=== PATIENT | male | born 1960 | race Caucasian/White ===

== ENCOUNTER → 2018-06-22 | Outpatient (CLI) | payer MEDICARE, OTHER ==
--- NOTE | 2018-06-22 14:13 | Diagnostic Imaging Report ---
INDICATION: History of smoking. COMPARISON: 06/30/2008 TECHNIQUE: Routine noncontrast low-dose CT of the chest was performed for screening purposes. FINDINGS: Evaluation of the lung astorga demonstrates punctate 3 mm micronodule associated with the left major fissure (image 161, series 2). This is stable compared to 06/30/2008. Small groundglass micronodular density is also seen within the lateral margins of the right upper lobe and measures 3 mm (image 108, series 2). This area however is stable as well. There is a 4-5 mm micronodular density within the base of the right upper lobe (image 169, series 2). Corresponding density cannot be adequately identified on prior exam. Note is made however of a significant difference in slice thickness between the two studies. There is no focal consolidation, large effusion, nor pneumothorax. Cardiomediastinal structures show normal heart size. There is moderate calcified coronary atherosclerosis. Small pericardial effusion is noted and is likely within physiologic limits. No pathologically enlarged or morphologically abnormal adenopathy is seen within the mediastinum, nir, nor axilla. Bony structures show no acute abnormalities. No lytic or blastic osseous lesions are seen. Included portions of the upper abdomen are unremarkable. IMPRESSION: 1. Small bilateral pulmonary micronodules are present. There may be single new micronodule within the base of the right upper lobe. Conceivably, this may have been obscured on prior imaging secondary to volume averaging. Continued followup with annual low dose CT chest is recommended. 2. Moderate calcified coronary atherosclerosis. LungRads: Category 2-S Dictated by: Dictated on workstation # [id number]
== END ==
LOC: RAD 12:03
PROVIDERS: ATTEND Registered Nurse
DX: Z12.2 Encounter for screening for malignant neoplasm of respiratory organs (principal); R91.8 Other nonspecific abnormal finding of lung field; I25.10 Atherosclerotic heart disease of native coronary artery without angina pectoris; F17.210 Nicotine dependence, cigarettes, uncomplicated

== ENCOUNTER → 2018-10-26 | Outpatient (CLI) | payer MEDICARE ==
[2018-10-26 12:37] LABS: ABG BASE EXCESS 2.4 MMOL/L (-2.5-2.5); ABG OXYGEN SATURATION 97 % (94-100); ABG PCO2 43 MMHG (35-45); ABG PH 7.41 (7.37-7.43); ABG PO2 71 MMHG (79-93); ABG TCO2 28.3 MMOL/L (21.0-31.0)
[2018-10-26 12:38] LABS: ALLENS TEST YES-POS; INSPIRED O2 RA; PATIENT TEMP 97.1; VENTILATOR NO
== END ==
LOC: RT 11:42
PROVIDERS: ATTEND Nurse Practitioner Family
DX: J45.909 Unspecified asthma, uncomplicated (principal); R91.8 Other nonspecific abnormal finding of lung field; Z72.0 Tobacco use
CPT/HCPCS: 36600; 82805

== ENCOUNTER → 2018-11-04 | Outpatient (CLI) | payer MEDICARE ==
[2018-11-04 12:48] LABS: CREATININE SERUM 1.47 MG/DL (0.60-1.30)
--- NOTE | 2018-11-04 15:40 | Diagnostic Imaging Report ---
PROCEDURE: CT chest without contrast. TECHNIQUE: Multiple contiguous axial images were obtained through the chest without the use of intravenous contrast. Auto Exposure Controls were utilized during the CT exam to meet ALARA standards for radiation dose reduction. INDICATION: Asthma. FINDINGS: No axillary lymphadenopathy is seen. No definite mediastinal or hilar lymphadenopathy is detected. No pericardial or pleural fluid is identified. Previously noted micronodule at the base of the right upper lobe is not appreciated on today's study. The micronodule associated with the major fissure on the left is barely visible on today's study. Groundglass micronodule in the lateral portion of the right upper lobe described previously is not appreciated on today's exam. No new nodules are seen. Upper abdomen is unremarkable. IMPRESSION: Previously noted micronodules are not appreciated on today's study with the exception of tiny nodule at the major fissure on the left which is barely visible. No new abnormality is seen. Dictated by: Dictated on workstation # [id number]
== END ==
LOC: RAD 12:13
PROVIDERS: ATTEND Nurse Practitioner Family
DX: J45.909 Unspecified asthma, uncomplicated (principal); G47.10 Hypersomnia, unspecified; Z72.0 Tobacco use
CPT/HCPCS: 36415; 71250; 82565; 84520

== ENCOUNTER → 2018-12-02 | Outpatient (CLI) | payer MEDICARE ==
[~2018-12-02] MED LIST: RT-ALBUTEROL SULF 2.5 MG/3 ML PRE-MIX VIAL INH ONE
== END ==
LOC: RT 07:38
PROVIDERS: ATTEND Nurse Practitioner Family
DX: J45.909 Unspecified asthma, uncomplicated (principal); G47.10 Hypersomnia, unspecified; Z72.0 Tobacco use
CPT/HCPCS: 94060; 94640; 94726; 94729

== ENCOUNTER → 2019-11-07 | Outpatient (CLI) | payer MEDICARE ==
--- NOTE | 2019-11-07 15:09 | Diagnostic Imaging Report ---
CT Lung Screening INDICATION: Screening for lung cancer, 40 pack year history of smoking, quit smoking within the past one year. TECHNIQUE: Noncontrast, low-dose CT imaging performed according to the lung cancer screening protocol. Auto Exposure Controls were utilize during the CT exam to meet ALARA standards for radiation dose reduction. COMPARISON:11/04/2018 and 06/22/2018 FINDINGS: No significant adenopathy within the chest. Mild scattered vascular calcifications without aneurysmal dilatation of the thoracic aorta. The heart is within normal limits in size. Trace pericardial fluid. No significant pleural effusion. No significant hiatal hernia. No pneumothorax. Possible 0.3 x 0.3 cm micronodule is suggested within the left upper lobe/lingula, axial image 147. 0.4 x 0.4 cm right upper lobe pulmonary nodule is present, axial image 80. This appears minimally more prominent than the prior exam, though this may simply relate to slice selection. Scarring within the right middle lobe. The trachea is patent. The minimally visualized upper abdomen is unremarkable. Postsurgical changes within the lower thoracic spine. Scattered osseous degenerative changes without acute osseous abnormality. IMPRESSION: Bilateral sub 0.4 cm pulmonary nodules. One nodule measuring 0.4 cm within the left upper lobe/lingula may be new from the prior examination. These are indeterminate. Given size of below 0.4 cm, these are benign appearance or behavior. LUNG-RADS CATEGORY:2: Benign appearance or behavior. FOLLOW-UP: Continued annual screening with low dose CT of the chest in 12 months. Dictated by: Dictated on workstation # [id number]
== END ==
LOC: RAD 13:24
PROVIDERS: ATTEND Nurse Practitioner Family
DX: R91.8 Other nonspecific abnormal finding of lung field (principal); Z72.0 Tobacco use

== ENCOUNTER → 2020-11-05 | Outpatient (CLI) | payer MEDICARE ==
--- NOTE | 2020-11-05 19:47 | Diagnostic Imaging Report ---
PROCEDURE: MRI lumbar spine. TECHNIQUE: Multiplanar, multisequence MRI of the lumbar spine was performed without contrast. INDICATION: History of previous lumbar surgery. Persistent back pain. Multiple falls. COMPARISON: 06/03/2013 FINDINGS: For the purposes of this exam, last well-formed disc space is denoted to be the L5-S1 level. Patient is status post interval laminectomy and posterior fusion at L2-L3. Integrity of the hardware cannot be directly assessed given MR modality and metallic susceptibility artifact, but static alignment at this level is preserved. There is otherwise reversal of normal lordotic curvature of the lumbar spine. There is no significant mason- or retrolisthesis. No evidence of jumped facets is seen. Vertebral body heights are maintained. There is no acute fracture. Evaluation of marrow signal demonstrates mild Modic type I degenerative endplate changes at the L3-L4 level on the left. Marrow signal is otherwise unremarkable. Intervertebral disc spacer material is also noted at L2-L3 and appears to be appropriately positioned. Intervertebral disc spaces are otherwise maintained, although there is multilevel anterior and posterior disc bulging. Visualized portions of distal cord are unremarkable. Conus terminates at approximately the L1 level. No abnormal intrathecal filling defects are seen. Pre and paravertebral soft tissue structures are unremarkable. Axial images demonstrate the following: T12-L1: There is mild broad-based posterior disc bulge and bilateral facet arthropathy. As a result, there is minimal narrowing of the spinal canal. Bilateral neural foramen are unremarkable. L1-L2: There is broad-based posterior disc bulge with bilateral ligamentum flavum laxity and facet arthropathy. As a result, there is mild narrowing of the spinal canal and bilateral neural foramen. L2-L3: Postsurgical changes as described above. There is no significant spinal canal or neuroforaminal stenosis. L3-L4: There is broad-based posterior disc bulge with bilateral ligamentum flavum laxity and facet arthropathy. As a result, there is severe spinal canal stenosis. There is also moderate narrowing of the bilateral neural foramen. This has significantly progressed when compared to prior exam. L4-L5: There is broad-based posterior disc bulge with bilateral ligamentum flavum laxity and facet arthropathy. As a result, there is moderate narrowing of the spinal canal and [id number] narrowing of the bilateral neural foramen. L5-S1: There is broad-based posterior disc bulge with bilateral facet arthropathy. As a result, there is mild narrowing of the spinal canal and bilateral neural foramen. IMPRESSION: 1. Multilevel degenerative changes of the lumbar spine. Since the previous exam, there has been significant interval progression at the L3-L4 level. 2. No acute fracture or dislocation. 3. Postsurgical changes as described above. Dictated by: Dictated on workstation # [id number]
== END ==
LOC: RAD 16:15
PROVIDERS: ATTEND Nurse Practitioner Family
DX: M47.816 Spondylosis without myelopathy or radiculopathy, lumbar region (principal); M51.26 Other intervertebral disc displacement, lumbar region; Z98.890 Other specified postprocedural states
CPT/HCPCS: 72148

== ENCOUNTER → 2020-11-15 | Outpatient (CLI) | payer MEDICARE ==
--- NOTE | 2020-11-15 17:47 | Diagnostic Imaging Report ---
CT Lung Screening INDICATION: Screening for lung cancer, [id number] history of smoking, quit smoking approximately 2 months prior. TECHNIQUE: Noncontrast, low-dose CT imaging performed according to the lung cancer screening protocol. Auto Exposure Controls were utilized during the CT exam to meet ALARA standards for radiation dose reduction. COMPARISON: 11/07/2019 and 06/22/2018. FINDINGS: No pathologically enlarged lymph nodes within the chest. Mild scattered vascular calcifications without aneurysmal dilatation of the thoracic aorta. The heart is within normal limits in size. No pericardial effusion. No pleural effusion. The trachea is patent. No pneumothorax. Mild scarring and/or atelectasis within the lingula. Scarring within the right middle lobe. Previously questioned tiny right upper lobe pulmonary nodule has decreased in size since the prior examination and is now barely visualized. Previously noted lingular pulmonary nodule is also not seen. No new pulmonary nodule. Diffusely decreased density of the liver. The minimally visualized upper abdomen is otherwise unremarkable. Chronic right-sided rib fractures. No acute osseous abnormality. IMPRESSION: No suspicious pulmonary nodule. Previously noted right upper lobe pulmonary nodule has essentially resolved since the prior examination. No new pulmonary nodules. Fatty infiltration of the liver. LUNG-RADS CATEGORY: 1: Negative. FOLLOW-UP: Continued annual low-dose CT of the chest in 12 months. Dictated by: Dictated on workstation # [id number]
== END ==
LOC: RAD 14:45
PROVIDERS: ATTEND Nurse Practitioner Family
DX: Z12.2 Encounter for screening for malignant neoplasm of respiratory organs (principal); F17.210 Nicotine dependence, cigarettes, uncomplicated
CPT/HCPCS: 71271

== ENCOUNTER 2021-08-12 07:58 | Outpatient (RCR) | payer MEDICARE | END 2021-09-07 | disposition home or self-care (01) | LOC: ONC 07:58 | PROVIDERS: ATTEND Radiology Radiation Oncology | DX: C61 Malignant neoplasm of prostate (principal); E11.9 Type 2 diabetes mellitus without complications; F32.A Depression, unspecified; I10 Essential (primary) hypertension; E78.00 Pure hypercholesterolemia, unspecified; J44.9 Chronic obstructive pulmonary disease, unspecified; N40.0 Benign prostatic hyperplasia without lower urinary tract symptoms; Z87.891 Personal history of nicotine dependence; Z79.84 Long term (current) use of oral hypoglycemic drugs; Z79.899 Other long term (current) drug therapy | CPT/HCPCS: 99204 ==

== ENCOUNTER → 2021-09-11 | Outpatient (CLI) | payer MEDICARE | END | disposition home or self-care (01) | LOC: PREOP 05:31 | PROVIDERS: ATTEND Radiology Radiation Oncology | DX: Z01.818 Encounter for other preprocedural examination (principal) ==